=== PATIENT | female | born 1995 | race Caucasian/White ===

== ENCOUNTER 2018-02-11 11:34 | Day surgery (SDC) | payer BC ==
[2018-02-11] MEDS ORDERED: PROPOFOL 40 ML (12:54)
== END 2018-02-11 15:15 | disposition home or self-care (01) ==
LOC: GIL 11:34
DX: K21.9 Gastro-esophageal reflux disease without esophagitis (principal); K29.70 Gastritis, unspecified, without bleeding
CPT/HCPCS: 43239; 84703; 88305; 88312